=== PATIENT | male | born 1945 | race Caucasian/White ===

== ENCOUNTER 2016-11-17 09:02 | Outpatient (CLI) | payer MEDICARE ==
--- NOTE | 2016-11-17 12:55 | ULT ---
RIGHT LOWER EXTREMITY VENOUS DUPLEX ULTRASOUND WITH COLOR AND SPECTRAL DOPPLER IMAGING HISTORY: A 71-year-old male with right leg pain for approximately 10 days, mostly around the region of the kn ee. TECHNIQUE: Exam performed from the groin to the ankle, including the visualized greater saphenous vein, the com mon femoral vein, the superficial femoral vein, the profunda femoral vein, the popliteal vein, the t rifurcation vein, and the posterior tibial vein regions. FINDINGS: There is phasic flow at all levels with normal compressibility and normal augmentation. No intralum inal thrombus. IMPRESSION: No evidence for deep venous thrombosis. POS: [facility]
== END 2016-11-17 09:03 | disposition home or self-care (01) ==
LOC: NAV ULT 09:02
PROVIDERS: ATTEND Family Medicine
DX: M79.604 Pain in right leg (principal)